=== PATIENT | female | born 1980 | race Native Hawaiian/Other Pacific Islander ===

== ENCOUNTER 2016-05-05 13:54 | Outpatient (CLI) | payer OTHER | END 2016-05-05 20:30 | disposition home or self-care (01) | LOC: RAD 13:54 | DX: M54.5 Low back pain (principal) ==

== ENCOUNTER 2018-01-30 09:24 | Emergency (ER) | payer OTHER ==
[~2018-01-30] VITALS: Ht 160 cm; Wt 43.5 kg
[2018-01-30] MEDS ORDERED: ALPR0.5T24 PO (10:55)
[2018-01-30] MEDS ORDERED: CELEXA20 MG PO (10:56)
[2018-01-30] MEDS ORDERED: VALTREX500 MG PO (10:57)
[2018-01-30 11:52] VITALS: BP 124/48; TEMP 98
== END 2018-01-30 11:58 | disposition home or self-care (01) ==
LOC: ED 10:24
DX: S20.211A Contusion of right front wall of thorax, initial encounter (principal); W18.39XA Other fall on same level, initial encounter; Y93.E1 Activity, personal bathing and showering; Y92.89 Other specified places as the place of occurrence of the external cause
CPT/HCPCS: 96372; 99283; J1885

== ENCOUNTER 2020-08-16 13:41 | Emergency (ER) | payer OTHER ==
[~2020-08-16] VITALS: Ht 160 cm; Wt 43.5 kg
[~2020-08-16 13:41] MED LIST: ALPR0.5T24 PO; CELEXA20 MG PO; VALTREX500 MG PO
[2020-08-16 13:54] VITALS: TEMP 99.3
[2020-08-16 15:41] VITALS: BP 102/68
== END 2020-08-16 15:42 | disposition home or self-care (01) ==
LOC: ED 13:41
DX: S00.83XA Contusion of other part of head, initial encounter (principal); R51.9 Headache, unspecified; W01.190A Fall on same level from slipping, tripping and stumbling with subsequent striking against furniture, initial encounter; Y92.89 Other specified places as the place of occurrence of the external cause
CPT/HCPCS: 99283

== ENCOUNTER 2021-01-16 10:48 | Outpatient (CLI) | payer OTHER | END 2021-01-16 18:55 | disposition home or self-care (01) | LOC: RAD 10:48 | PROVIDERS: ATTEND Nurse Practitioner | DX: R07.89 Other chest pain (principal) ==

== ENCOUNTER 2021-09-30 21:26 | Emergency (ER) | payer OTHER ==
[~2021-09-30] VITALS: Ht 160 cm; Wt 41.3 kg
[2021-09-30 21:30] VITALS: BP 110/60; TEMP 97.6
== END 2021-09-30 21:47 | disposition home or self-care (01) ==
LOC: ED 21:26
DX: S00.83XA Contusion of other part of head, initial encounter (principal); W18.39XA Other fall on same level, initial encounter; Y93.89 Activity, other specified; Y92.89 Other specified places as the place of occurrence of the external cause; Z87.820 Personal history of traumatic brain injury
CPT/HCPCS: 99282